=== PATIENT | male | born 1955 | race African-American/Black ===

== ENCOUNTER → 2023-03-24 12:37 | Outpatient (CLI) | payer MEDICARE, SELFPAY ==
--- NOTE | 2023-03-24 12:45 | XR_ITS ---
FINAL REPORT CLINICAL HISTORY: foot pain, hammer toe repair 2020, sharp pain in 2nd and 5th digits FINDINGS: LEFT FOOT SERIES Three views of the left foot were obtained. There is no acute fracture or dislocation. There are degenerative and postoperative changes of the first metatarsophalangeal joint. There is presumed postoperative change of the fifth metatarsal. There is mild degenerative change. A plantar calcaneal spur is seen. A pes planus deformity is noted. There is no soft tissue abnormality. IMPRESSION: No acute bony abnormality. Degenerative and postoperative changes as stated above. Reviewed, Interpreted and Dictated by Clarence Bradshaw III, MD Transcribed by Susana Mirza Authenticated and [facility]
== END ==
PROVIDERS: PCP Family Medicine Addiction Medicine; Visit Provider Podiatrist
DX: M79.672 Pain in left foot (principal)
CPT/HCPCS: 73630

== ENCOUNTER 2023-08-06 09:10 | Day surgery (SDC) | payer MEDICARE, SELFPAY ==
[2023-08-04 14:11] VITALS: BMI 29.2
[2023-08-06] VITALS (10 sets, daily range): BP systolic 117–154; BP diastolic 45–93; PULSE 74–127; RESP 17–24; TEMP 36.1–36.2; O2SAT 96–99
--- OUTSIDE RECORDS SUMMARY | 2023-08-06 09:17 | XMS_ITS ---
Author Name Unknown Address [address] [place] [address] Phone Organization [facility] Address [address] [place] [address] Phone Care Team Providers Care Utility Tractor Operator Name Role Phone Michael HERNANDEZ, Carey Silva Unavailable [phone] Vern HERNANDEZ, Vega Unavailable [phone] DENISE HERNANDEZ, OCTAVIO I Primary Care Provider [phone] Reason for Referral Date Encounter Description Provider Reason for Referral 02/11/23 Follow Up Vega Porras MD Referral To Physician 12/29/22 Follow Up Vega Porras MD Referral To Physician 07/21/22 Follow Up Vega Porras MD Referral To Physician 05/07/22 Post Op Vega Porras MD Referral To Physician 05/06/21 WC FOLLOW UP/EST Vega Porras MD Referral To Physician - see pcp for bp 04/15/21 WC POST OP Vega Porras MD Referral To Physician - see pcp for bp 03/18/21 Post Op Vega Porras MD Referral To Physician - see pcp for bp 11/12/20 Follow Up Vega Porras MD Referral To Physician - see pcp for bp 08/22/20 INJECTION Vega Porras MD Referral To Physician - see pcp for bp 08/13/20 Follow Up Vega Porras MD Referral To Physician - see pcp for bp 05/28/20 INJECTION Vega Porras MD Referral To Physician - see pcp for bp 05/28/20 Follow Up Vega Porras MD Referral To Physician - see pcp for bp Problems Includes: Active, inactive, and resolved Problems All Visits Onset Date Resolved Date Provider Condition S tatus Ankle Joint Pain 11/12/2020 Vega Porras MD Act eliazar Plan of Treatment Future Appointments Date Time Location Provi radha Follow Up 08/24/2023 10:00AM [facility] Porras MD Instructions to patient Instructions for patient see pcp for bp and weight Last Documented On 3 10:17AM ; [facility] Lose weight Last Documented On 3 10:17AM ; [facility] Instructions for patient see pcp for bp and weight Last Documented On 3 8:49AM ; [facility] Lose weight Last Documented On 3 8:49AM ; [facility] Instructions for patient see pcp for bp and weight Last Documented On 3 9:24AM ; [facility] No intervention and counseli ng on cessation of tobacco use Last Documented On 3 9:24AM ; [facility] Lose weight Last Documented On 3 9:24AM ; [facility] Instructions for patient see pcp for bp and weight Last Documented On 3 1:59PM ; [facility] No intervention and counseli ng on cessation of tobacco use Last Documented On 3 1:59PM ; [facility] Lose weight Last Documented On 3 1:59PM ; [facility] Instructions for patient see pcp for bp and weight Last Documented On 2 9:21AM ; [facility] No intervention and counseli ng on cessation of tobacco use Last Documented On 2 9:21AM ; [facility] Lose weight Last Documented On 2 9:21AM ; [facility] Instructions for patient see pcp for bp and weight Last Documented On 2 9:21AM ; [facility] No intervention and counseli ng on cessation of tobacco use Last Documented On 2 9:21AM ; [facility] Lose weight Last Documented On 2 9:21AM ; [facility] Instructions for patient see pcp for bp and weight Last Documented On 2 2:44PM ; [facility] No intervention and counseli ng on cessation of tobacco use Last Documented On 2 2:44PM ; [facility] Lose weight Last Documented On 2 2:44PM ; [facility] Instructions for patient see pcp for bp and weight Last Documented On 2 10:28AM ; [facility] No intervention and counseli ng on cessation of tobacco use Last Documented On 2 10:35AM ; [facility] Lose weight Last Documented On 2 10:28AM ; [facility] Instructions for patient see pcp for bp and weight Last Documented On 2 3:54PM ; [facility] Lose weight Last Documented On 2 3:54PM ; [facility] Instructions for patient see pcp for bp and weight Last Documented On 2 11:35AM ; [facility] Lose weight Last Documented On 2 11:35AM ; [facility] Instructions for patient see pcp for bp and weight Last Documented On 1 9:03AM ; [facility] Lose weight Last Documented On 1 9:03AM ; [facility] Instructions for patient see pcp for bp and weight Last Documented On 1 9:59AM ; [facility] Lose weight Last Documented On 1 9:59AM ; [facility] Instructions for patient see pcp for bp and weight Last Documented On 1 9:42AM ; [facility] Lose weight Last Documented On 1 9:42AM ; [facility] Instructions for patient see pcp for bp and weight Last Documented On 1 10:37AM ; [facility] Lose weight Last Documented On 1 10:37AM ; [facility] Instructions for patient see pcp for bp and weight Last Documented On 0 11:07AM ; [facility] Lose weight Last Documented On 0 11:07AM ; [facility] Instructions for patient see pcp for bp and weight Last Documented On 0 11:46AM ; [facility] Lose weight Last Documented On 0 11:46AM ; [facility] Instructions for patient see pcp for bp and weight Last Documented On 0 1:16PM ; [facility] Lose weight Last Documented On 0 1:16PM ; [facility] Instructions for patient see pcp for bp and weight Last Documented On 0 10:00AM ; [facility] Lose weight Last Documented On 0 10:00AM ; [facility] Instructions for patient see pcp for weight Last Documented On 0 10:46AM ; [facility] Lose weight Last Documented On 0 10:46AM ; [facility] Instructions for patient see pcp for weight Last Documented On 0 2:11PM ; [facility] Lose weight Last Documented On 0 2:11PM ; [facility] Assessments Includes: Assessments for all patient encounters No Assessments Recorded Instructions Includes: Instructions for all patient encounters Instructions to patient Instructions for patient see pcp for bp and weight Last Documented On 3 10:17AM ; [facility] Lose weight Last Documented On 3 10:17AM ; [facility] Instructions for patient see pcp for bp and weight Last Documented On 3 8:49AM ; [facility] Lose weight Last Documented On 3 8:49AM ; [facility] Instructions for patient see pcp for bp and weight Last Documented On 3 9:24AM ; [facility] No intervention and counseli ng on cessation of tobacco use Last Documented On 3 9:24AM ; [facility] Lose weight Last Documented On 3 9:24AM ; [facility] Instructions for patient see pcp for bp and weight Last Documented On 3 1:59PM ; [facility] No intervention and counseli ng on cessation of tobacco use Last Documented On 3 1:59PM ; [facility] Lose weight Last Documented On 3 1:59PM ; [facility] Instructions for patient see pcp for bp and weight Last Documented On 2 9:21AM ; [facility] No intervention and counseli ng on cessation of tobacco use Last Documented On 2 9:21AM ; [facility] Lose weight Last Documented On 2 9:21AM ; [facility] Instructions for patient see pcp for bp and weight Last Documented On 2 9:21AM ; [facility] No intervention and counseli ng on cessation of tobacco use Last Documented On 2 9:21AM ; [facility] Lose weight Last Documented On 2 9:21AM ; [facility] Instructions for patient see pcp for bp and weight Last Documented On 2 2:44PM ; [facility] No intervention and counseli ng on cessation of tobacco use Last Documented On 2 2:44PM ; [facility] Lose weight Last Documented On 2 2:44PM ; [facility] Instructions for patient see pcp for bp and weight Last Documented On 2 10:28AM ; [facility] No intervention and counseli ng on cessation of tobacco use Last Documented On 2 10:35AM ; [facility] Lose weight Last Documented On 2 10:28AM ; [facility] Instructions for patient see pcp for bp and weight Last Documented On 2 3:54PM ; [facility] Lose weight Last Documented On 2 3:54PM ; [facility] Instructions for patient see pcp for bp and weight Last Documented On 2 11:35AM ; [facility] Lose weight Last Documented On 2 11:35AM ; [facility] Instructions for patient see pcp for bp and weight Last Documented On 1 9:03AM ; [facility] Lose weight Last Documented On 1 9:03AM ; [facility] Instructions for patient see pcp for bp and weight Last Documented On 1 9:59AM ; [facility] Lose weight Last Documented On 1 9:59AM ; [facility] Instructions for patient see pcp for bp and weight Last Documented On 1 9:42AM ; [facility] Lose weight Last Documented On 1 9:42AM ; [facility] Instructions for patient see pcp for bp and weight Last Documented On 1 10:37AM ; [facility] Lose weight Last Documented On 1 10:37AM ; [facility] Instructions for patient see pcp for bp and weight Last Documented On 0 11:07AM ; [facility] Lose weight Last Documented On 0 11:07AM ; [facility] Instructions for patient see pcp for bp and weight Last Documented On 0 11:46AM ; [facility] Lose weight Last Documented On 0 11:46AM ; [facility] Instructions for patient see pcp for bp and weight Last Documented On 0 1:16PM ; [facility] Lose weight Last Documented On 0 1:16PM ; [facility] Instructions for patient see pcp for bp and weight Last Documented On 0 10:00AM ; [facility] Lose weight Last Documented On 0 10:00AM ; [facility] Instructions for patient see pcp for weight Last Documented On 0 10:46AM ; [facility] Lose weight Last Documented On 0 10:46AM ; [facility] Instructions for patient see pcp for weight Last Documented On 0 2:11PM ; [facility] Lose weight Last Documented On 0 2:11PM ; [facility] Medical Equipment - Implanted Devices Includes: Current and historical Devices No Medical Equipment Recorded Medications Includes: Current and historical Medications Current Medications (continue as prescribed) Synthroid 25 MCG Oral Tablet 06/09/2022 Provider: Diagnosis: Past Medications on file oxyCODONE HCl 5 MG Oral Tablet 02/16/2023 - 02/21/2023 Provider: Vega Porras MD Diagnosis: 1-2 p o q 6-8h for post op pain Meloxicam 15 MG Oral Tablet 02/16/2023 - 03/18/2023 Pr ovider: Vega Porras MD Diagnosis: once a day Ondansetron HCl 4 MG Oral Tablet 02/16/2023 - 03/02/20 Provider: Vega Porras MD Diagnosis: 1-2 p o q 6-8h as needed for nausea Cefadroxil 500 MG Oral Capsule 02/16/2023 - 02/19/2023 Provider: Vega Porras MD Diagnosis: twice a day traMADol HCl 50 MG Oral Tablet 02/16/2023 - 03/03/2023 Provider: Vega Porras MD Diagnosis: 1-2 p o q 6-8h for breakthrough post op pain Colace 100 MG Oral Capsule 02/16/2023 - 03/18/2023 Pro vider: Vega Porras MD Diagnosis: 1-2 tabs daily as needed, AFTER SURGERY Aspirin Adult Low Strength 8 1 MG Oral Tablet Delayed Release 02/16/2023 - 04/02/2023 Provider: Vega Porras MD Diagnosis: twice a day Acetaminophen 500 MG Oral Tablet 02/16/2023 - 03/18/20 Provider: Vega Porras MD Diagnosis: 2 three times a day , AFTER SURGERY Mupirocin 2% External Ointment 02/08/2023 - 02/13/2023 Provider: Vega Porras MD Diagnosis: as directed Apply to each no stril with a q tip once a day for 5 days prior to surgery Metaxalone 800 MG Oral Tablet 12/29/2022 - 01/14/2023 Provider: Vega Porras MD Diagnosis: three times a day traMADol HCl 50 MG Oral Tablet 12/29/2022 - 01/14/2023 Provider: Vega Porras MD Diagnosis: three times a day Ultram 50 MG Oral Tablet 06/09/2022 - 07/09/2022 Provi radha: Vega Porras MD Diagnosis: three times a day oxyCODONE HCl 5 MG Oral Tablet 04/16/2022 - 04/21/2022 Provider: Vega Porras MD Diagnosis: 1-2 p o q 6-8h for post op pain Mobic 15 MG Oral Tablet 04/16/2022 - 05/16/2022 Provid er: Vega Porras MD Diagnosis: once a day Ondansetron HCl 4 MG Oral Tablet 04/16/2022 - 04/30/20 Provider: Vega Porras MD Diagnosis: 1-2 p o q 6-8h as needed for nausea Cefadroxil 500 MG Oral Capsule 04/16/2022 - 04/19/2022 Provider: Vega Porras MD Diagnosis: twice a day Ultram 50 MG Oral Tablet 04/16/2022 - 05/01/2022 Provi radha: Vega Porras MD Diagnosis: 1-2 p o q 6-8h for breakthrough post op pain Colace 100 MG Oral Capsule 04/16/2022 - 05/16/2022 Pro vider: Vega Porras MD Diagnosis: 1-2 tabs daily as needed, AFTER SURGERY Aspirin Adult Low Strength 8 1 MG Oral Tablet Delayed Release 04/16/2022 - 05/31/2022 Provider: Vega Porras MD Diagnosis: twice a day Acetaminophen 500 MG Oral Tablet 04/16/2022 - 05/16/20 Provider: Vega Porras MD Diagnosis: 2 three times a day , AFTER SURGERY Vitamin D3 50 MCG (1999 [place]) Oral Tablet 04/14/2022 - 05/14/2022 Provider: Santa KEYES Diagnosis: once a day traMADol HCl 50 MG Oral Tablet 03/31/2022 - 04/30/2022 Provider: Vega Porras MD Diagnosis: twice a day traMADol HCl 50 MG Oral Tablet 01/16/2022 - 02/15/2022 Provider: Vega Porras MD Diagnosis: twice a day traMADol HCl 50 MG Oral Tablet 01/16/2022 - 04/07/2022 Provider: Vega Porras MD Diagnosis: Ultram 50 MG Oral Tablet 09/23/2021 - 10/08/2021 Provi radha: Vega Porras MD Diagnosis: 1 tab every 6 hrs prn pain Liothyronine Sodium 25 MCG O ral Tablet 09/03/2021 - 06/09/2022 Provider: CURTIS HRUTADO MD Diagnosis: Metoprolol Succinate ER 25 M G Oral Tablet Extended Release 24 Hour 07/09/2021 - 04/07/2022 Provider: Diagnosis: Levothyroxine Sodium 150 MCG Oral Tablet 07/09/2021 - 06/09/2022 Provider: CURTIS HURTADO MD Diagnosis: oxyCODONE HCl 5 MG Oral Tablet 03/03/2021 - 04/02/2021 Provider: Vega Porras MD Diagnosis: 1-2 po q 4-6h take 1-2 table ts every 4-6hrs for post op pain Aspirin Adult Low Strength 8 1 MG Oral Tablet Delayed Release 03/03/2021 - 03/25/2021 Provider: Vega Porras MD Diagnosis: 1 tab every 12 hours Acetaminophen 500 MG Oral Tablet 03/03/2021 - 04/02/20 Provider: Vega Porras MD Diagnosis: 2 po three times a day Acetaminophen 500 MG Oral Tablet 03/03/2021 - 04/02/20 Provider: Vega Porras MD Diagnosis: 2 three times a day take 2 t ablets 3 times daily, AFTER SURGERY Colace 100 MG Oral Capsule 03/03/2021 - 04/02/2021 Pro vider: Vega Porras MD Diagnosis: 1-2 tabs daily 1-2 tablets daily, as needed, AFT ER SURGERY Cephalexin 500 MG Oral Capsule 03/03/2021 - 03/06/2021 Provider: Vega Porras MD Diagnosis: four times a day Zofran 4 MG Oral Tablet 03/03/2021 - 03/18/2021 Provid er: Vega Porras MD Diagnosis: 1 po q 6 to 8 hrs prn pain t nicole 1 tablet every 6-8hrs for nausea, AFTER SURGERY Mobic 15 MG Oral Tablet 03/03/2021 - 04/02/2021 Provid er: Vega Porras MD Diagnosis: once a day 1 tablet daily Ultram 50 MG Oral Tablet 03/03/2021 - 04/02/2021 Provi radha: Vega Porras MD Diagnosis: 1-2 p o q 6-8h take 1-2 tabl ets every 6-8 hours for breakthrough post op pain Mupirocin 2% External Ointment 11/15/2020 - 04/07/2022 Provider: Vega Porras MD Diagnosis: twice a day - apply under ea ch nostril 2 x day 5days prior to surgery with a q-tip Synthroid 200 MCG Oral Tablet 05/07/2020 - 04/07/2022 Provider: Diagnosis: Medications Administered Includes: Administered Medications in patient's chart No Administered Medications Recorded Vital Signs Includes: Vital Signs from 08/06/2022 through 08/06/2023 Vital Name 04/06/2023 10:38A 03/02/2023 08:49A 02/11/2023 09:40A 12/29/2022 02:15P Height (in) 79 79 79 79 Weight (lb) 255 255 255 260 Body Mass Index 28.7 28.7 28.7 29.3 Body Surface Area 2.5 2.5 2.5 2.5 Note: mg mg ba ba Last Documented On: 04/06/2023 10:38AM ; [facility] 03/02/2023 8:50AM ; [facility] 02/11/2023 9:41AM ; [facility] 12/29/2022 2:15PM ; [facility] Results Includes: Results from 08/06/2022 through 08/06/2023 No Results Recorded For Specified Dates History of Present Illness History of Present Illness not supported for this document type No History of Present Illness Recorded Social History Description Last Updated No recent change in diet 06/09/2022 Procedures and Surgical History Includes: Procedures from 08/06/2022 through 08/06/2023 Procedures Code Diagnosis Performing Provider Service Location Service Date PELVIS w/ 2-3 VIEW HIP (LEFT) [address] [facility] compl of internal left hip prosthesis, init encntr Huber Arenas PA-C [facility] 03/02/2023 Surgical History Last Updated History of hernia repair 08/18/2019 Medical History Includes: Medical History in patient's chart Description Last Updated History of Thyroid Disease 06/09/2022 Family History Includes: Family History in patient's chart Description Last Updated No significant family history 08/18/2019 Review of Systems Review of Systems not supported for this document type No Review of Systems Recorded Mental Status Description No anxiety Functional Status No Functional Status Recorded Physical Exam Physical Exam not supported for this document type No Physical Exam Recorded Allergies Includes: Active, inactive, and resolved Allergies No Known Allergies Encounters Includes: Encounters from 08/06/2022 through 08/06/2023 Encounter Provider Location Date Check-In Time Check-Out Time Diagnosis Post Op Vega Porras MD [facility] 04/06/20 10:14AM 11:01AM Post Op Huber Arenas PA-C [facility] 03/02/20 8:52AM 9:20AM [Patient Encounter] Vega Porras MD 02/18/20 23 12/29/2022 9:32AM 12/29/2022 11:59PM [facility] Vega Porras MD Surgery 02/18/20 23 02/16/2023 10:16AM 02/11/2023 11:59PM Follow Up [facility]/12/20 9:13AM 10:08AM Follow Up Vega Porras MD [facility] 12/30/19 1:54PM 2:32PM Insurance Includes: Active Insurance Policies Plan Name Member ID Group # Subscriber Relationship Effect eliazar Dates 1 - [employer] [id number] Rick Velasco Self 08/23/2022 - U nknown Clinical Notes Includes: Signed Clinical Notes starting from 08/06/2022 * Progress note Date Encounter Last Documented by 04/06/2023 Post Op Last documented on 04/07/2023; 3:16 PM, Vega Porras MD; [facility] Active Problems & Conditions - Ankle Joint Pain - Joint Pain in the Right Hip - Lower Back Pain Chief Complaint The Chief Complaint is: LT YORDY Revision POV. Referred Here Referred by PCP. History of Present Illness Rick Velasco is a 67 year old male. - Allergy list reviewed - Problem list reviewed - Medication list reviewed left hip revision doing well Current Medication - Synthroid 25 MCG Oral Tablet 0 days, 0 refills Past Medical/Surgical History Reported: Medical: Thyroid disease and gallbladder disease. Immunization History: Recent immunization for flu 05/23/2020. No recent immunization for pneumococcal pneumonia. Diagnoses: Thyroid Disease. Thyroid Disease Procedural: - History of Gallbladder Surgical: - Hernia repair - Hernia repair - Back surgery Social History Not a current smoker. Not a current smoker. Current diet: No recent change in diet. No recent change in diet. Caffeine use: Caffeine use. Tobacco use: No tobacco use. Current smoker and tobacco non-user. Not a smoker. Non-smoker. Smoking status: Never smoker. Alcohol: Alcohol use. Drug Use: Not using drugs. Habits: Not exercising regularly. Allergies - No Known Allergies Family History No significant family history Review Of Systems Systemic: Not feeling tired, no recent weight loss, and no recent weight gain. No edema. Head: No headache and no sinus pain. Eyes: No vision problems and no glaucomatous visual field defect. No Cataracts, no Glasses/Contacts, and no Glaucoma. Otolaryngeal: No hearing loss and no tinnitus. No nasal symptoms. Cardiovascular: No chest pain or discomfort, no palpitations, no Hypertension, and no High Cholesterol. Pulmonary: No daytime asthma symptoms, no cough, and no chronic cough. No wheezing. Gastrointestinal: No heartburn and no abdominal pain. No Indigestion, no Acid Reflux, no Peptic Ulcer, no GI Stomach Bleed, and no Ulcers. Endocrine: No hot flashes, no muscle weakness, no Diabetes, and no Hypothyroid. Hyperthyroid. Hematologic: No easy bleeding, no tendency for easy bruising, and no Anemia. Musculoskeletal: No Arthritis. Lower back pain. No soft tissue swelling and no localized joint pain. Neurological: No dizziness, no convulsions, and no numbness. Psychological: No anxiety, no emotional lability, no depression, and no insomnia. Not crying for no reason. Skin: No dry skin. No Ulcers, no Scars, no rash, and no ulcers. Allergic and Immunologic: No complaint of seasonal allergic reaction. Physical Findings - Vitals taken 04/06/2023 10:38 am mg Height 79 in 60 - 80 Weight 255 lbs 123 - 215 Body Mass Index 28.7 kg/m2 Body Surface Area 2.5 m2 Standard Measurements: - Patient was overweight. left hip incision is clean and dry and healing well leg lengths are equal as a normal gait today Tests 2 views left hip show the implant in good position March 02, 2023 x-rays of the pelvis and left hipequal offset and length in both lower extremities with good position of implants Assessment revision left total hip February 17, 2023 Previous Tests Imaging: X-Ray: An X-ray was performed. Counseling/Education - Instructions for patient see pcp for bp and weight - Lose weight Plan Fall Risk Assessment: This patient has been identified as a fall risk. Balance/gait along with postural blood pressure, vision and home fall hazards have been assessed. Medications have been reviewed, and recommendations made with regard to contributing factors for future falls. Plan of care: Consideration of vitamin D supplementation along with balance and strength training with consideration for formal physical therapy has been discussed with the patient. patient will follow up in 3 months for repeat x-rays of the pelvis and sooner if needed otherwise continue exercise program Notes This dictation was done with voice recognition software and may contain errors and omissions. Practice Management Use of tobacco assessment performed and patient screened for future fall risk documentation of any fall with injury in past year. Care Team - Carey Rodriguez MD - [employer] * Progress note Date Encounter Last Documented by 03/02/2023 Post Op Last documented on 03/02/2023; 12:30 PM, Huber Arenas PA-C; [facility] Active Problems & Conditions - Ankle Joint Pain - Joint Pain in the Right Hip - Lower Back Pain Chief Complaint The Chief Complaint is: LT YORDY Revision POV. Referred Here Referred by PCP. History of Present Illness Rick Velasco is a 67 year old male. - Allergy list reviewed - Problem list reviewed - Medication list reviewed Follow-up on his left total hip revision February 17, 2023. Patient states he is doing really good at this point time no significant pain he does feel that the legs are equal at this point in time. He is in a walking up to a mile a day he says doing exercises on his own at this point in time Current Medication - Acetaminophen 500 MG Oral Tablet 2 three times a day , AFTER SURGERY, 10 days, 2 refills - Aspirin Adult Low Strength 81 MG Oral Tablet Delayed Release twice a day, 45 days, 0 refills - Colace 100 MG Oral Capsule 1-2 tabs daily as needed, AFTER SURGERY, 30 days, 0 refills - Meloxicam 15 MG Oral Tablet once a day, 30 days, 0 refills - Synthroid 25 MCG Oral Tablet 0 days, 0 refills - traMADol HCl 50 MG Oral Tablet 1-2 p o q 6-8h for breakthrough post op pain, 15 days, 0 refills Past Medical/Surgical History Reported: Medical: Thyroid disease and gallbladder disease. Immunization History: Recent immunization for flu 05/23/2020. No recent immunization for pneumococcal pneumonia. Diagnoses: Thyroid Disease Procedural: - History of Gallbladder Surgical: - Hernia repair - Back surgery Social History Not a current smoker. Not a current smoker. Current diet: No recent change in diet. No recent change in diet. Caffeine use: Caffeine use. Tobacco use: No tobacco use. Current smoker and tobacco non-user. Not a smoker. Non-smoker. Smoking status: Never smoker. Alcohol: Alcohol use. Drug Use: Not using drugs. Habits: Not exercising regularly. Allergies - No Known Allergies Family History No significant family history Review Of Systems Systemic: Not feeling tired, no recent weight loss, and no recent weight gain. No edema. Head: No headache and no sinus pain. Eyes: No vision problems and no glaucomatous visual field defect. No Cataracts, no Glasses/Contacts, and no Glaucoma. Otolaryngeal: No hearing loss and no tinnitus. No nasal symptoms. Cardiovascular: No chest pain or discomfort, no palpitations, no Hypertension, and no High Cholesterol. Pulmonary: No daytime asthma symptoms, no cough, and no chronic cough. No wheezing. Gastrointestinal: No heartburn and no abdominal pain. No Indigestion, no Acid Reflux, no Peptic Ulcer, no GI Stomach Bleed, and no Ulcers. Endocrine: No hot flashes, no muscle weakness, no Diabetes, and no Hypothyroid. Hyperthyroid. Hematologic: No easy bleeding, no tendency for easy bruising, and no Anemia. Musculoskeletal: No Arthritis. Lower back pain. No soft tissue swelling and no localized joint pain. Neurological: No dizziness, no convulsions, and no numbness. Psychological: No anxiety, no emotional lability, no depression, and no insomnia. Not crying for no reason. Skin: No dry skin. No Ulcers, no Scars, no rash, and no ulcers. Allergic and Immunologic: No complaint of seasonal allergic reaction. Physical Findings - Vitals taken 03/02/2023 08:49 am mg Height 79 in Weight 255 lbs Body Mass Index 28.7 kg/m2 Body Surface Area 2.5 m2 Standard Measurements: - Patient was overweight. His incision looks clean dry intact with the dressing off today he has some scabbing near the base of the incision no drainage or erythema negative Homans Sitting today's leg lengths appear equal Tests 2 views left hip show the implant in good position March 02, 2023 Assessment revision left total hip February 17, 2023 Previous Tests Imaging: X-Ray: An X-ray was performed. Counseling/Education - Instructions for patient see pcp for bp and weight - Lose weight Plan Fall Risk Assessment: This patient has been identified as a fall risk. Balance/gait along with postural blood pressure, vision and home fall hazards have been assessed. Medications have been reviewed, and recommendations made with regard to contributing factors for future falls. Plan of care: Consideration of vitamin D supplementation along with balance and strength training with consideration for formal physical therapy has been discussed with the patient. Patient was seen by myself Huber Arenas PA-C. Patient will follow up [address] Porras he is planning on potentially flying to see a family member who is not doing well recommend he continue on his aspirin which he still taking Notes This dictation was done with voice recognition software and may contain errors and omissions. Practice Management Use of tobacco assessment performed and patient screened for future fall risk documentation of any fall with injury in past year. Care Team - Carey Rodriguez MD - [employer] * Progress note Date Encounter Last Documented by 02/11/2023 Follow Up Last documented on 02/15/2023; 5:22 PM, Vega Porras MD; [facility] Active Problems & Conditions - Ankle Joint Pain - Joint Pain in the Right Hip - Lower Back Pain Chief Complaint The Chief Complaint is: Left Hip PainThe Chief Complaint is: Left hip pain. Referred Here Referred by PCP. History of Present Illness Rick Velasco is a 67 year old male. - Allergy list reviewed - Problem list reviewed - Medication list reviewed Patient presents for discussion of his upcoming surgery and plan for equalizing leg lengths and offset on the left side where he ended up little bit short and has had failure improvement with conservative treatment with shoe lift Current Medication - Mupirocin 2% External Ointment as directed Apply to each nostril with a q tip once a day for 5 days prior to surgery, 5 days, 0 refills - Synthroid 25 MCG Oral Tablet 0 days, 0 refills Past Medical/Surgical History Reported: Medical: Thyroid disease and gallbladder disease. Immunization History: Recent immunization for flu 05/23/2020. No recent immunization for pneumococcal pneumonia. Diagnoses: Thyroid Disease. Thyroid Disease Procedural: - History of Gallbladder Surgical: - Hernia repair - Hernia repair - Back surgery Social History Not a current smoker. Not a current smoker. Current diet: No recent change in diet. No recent change in diet. Caffeine use: Caffeine use. Tobacco use: No tobacco use. Current smoker and tobacco non-user. Not a smoker. Non-smoker. Smoking status: Never smoker. Alcohol: Alcohol use. Drug Use: Not using drugs. Habits: Not exercising regularly. Allergies - No Known Allergies Family History No significant family history Review Of Systems Systemic: Not feeling tired, no recent weight loss, and no recent weight gain. No edema. Head: No headache and no sinus pain. Eyes: No vision problems and no glaucomatous visual field defect. No Cataracts, no Glasses/Contacts, and no Glaucoma. Otolaryngeal: No hearing loss and no tinnitus. No nasal symptoms. Cardiovascular: No chest pain or discomfort, no palpitations, no Hypertension, and no High Cholesterol. Pulmonary: No daytime asthma symptoms, no cough, and no chronic cough. No wheezing. Gastrointestinal: No heartburn and no abdominal pain. No Indigestion, no Acid Reflux, no Peptic Ulcer, no GI Stomach Bleed, and no Ulcers. Endocrine: No hot flashes, no muscle weakness, no Diabetes, and no Hypothyroid. Hyperthyroid. Hematologic: No easy bleeding, no tendency for easy bruising, and no Anemia. Musculoskeletal: No Arthritis. Lower back pain. No soft tissue swelling and no localized joint pain. Neurological: No dizziness, no convulsions, and no numbness. Psychological: No anxiety, no emotional lability, no depression, and no insomnia. Not crying for no reason. Skin: No dry skin. No Ulcers, no Scars, no rash, and no ulcers. Allergic and Immunologic: No complaint of seasonal allergic reaction. Physical Findings - Vitals taken 02/11/2023 09:40 am ba Height 79 in 60 - 80 Weight 255 lbs 123 - 215 Body Mass Index 28.7 kg/m2 Body Surface Area 2.5 m2 Standard Measurements: - Patient was overweight. Left lower extremity appears to be about 4 to 6 mm millimeter short clinically but has good motion and good healing neurovascular exam intact otherwise Assessment Left total hip replacement April 17, 2022 Previous Tests Imaging: X-Ray: An X-ray was performed. Therapy - No intervention and counseling on cessation of tobacco use. - Follow-up visit in one month. - Clinical summary provided to patient. - Referral to physician. Counseling/Education - Instructions for patient see pcp for bp and weight - Lose weight Plan Fall Risk Assessment: This patient has been identified as a fall risk. Balance/gait along with postural blood pressure, vision and home fall hazards have been assessed. Medications have been reviewed, and recommendations made with regard to contributing factors for future falls. Plan of care: Consideration of vitamin D supplementation along with balance and strength training with consideration for formal physical therapy has been discussed with the patient. We discussed the operation in detail again risk benefits were discussed Willough be able to equalize his leg length and offset with the liner and ball exchange he understands the details of the operation would like to proceed accordingly Notes This dictation was done with voice recognition software and may contain errors and omissions. Practice Management Use of tobacco assessment performed and patient screened for future fall risk documentation of any fall with injury in past year. Care Team - Carey Rodriguez MD - [employer] * Progress note Date Encounter Last Documented by 12/29/2022 Follow Up Last documented on 01/11/2023; 8:50 AM, Vega Porras MD; [facility] Active Problems & Conditions - Ankle Joint Pain - Joint Pain in the Right Hip - Lower Back Pain Chief Complaint The Chief Complaint is: Left YORDY POVThe Chief Complaint is: Left hip pain. Referred Here Referred by PCP. History of Present Illness Rick Velasco is a 67 year old male. - Allergy list reviewed - Problem list reviewed - Medication list reviewed 67-year-old male returns in follow-up of a left total hip replacement 04/17/2022. He states that he still has some of a leg length discrepancy on the left compared to the right. He has tried shoe inserts which did not improve his gait and his hip pain did not improve either. He has been taking Advil for referred back pain which is not providing significant relief. Current Medication - Synthroid 25 MCG Oral Tablet 0 days, 0 refills Past Medical/Surgical History Reported: Medical: Thyroid disease and gallbladder disease. Immunization History: Recent immunization for flu 05/23/2020. No recent immunization for pneumococcal pneumonia. Diagnoses: Thyroid Disease. Thyroid Disease Procedural: - History of Gallbladder Surgical: - Hernia repair - Hernia repair - Back surgery Social History Not a current smoker. Not a current smoker. Current diet: No recent change in diet. No recent change in diet. Caffeine use: Caffeine use. Tobacco use: No tobacco use. Current smoker and tobacco non-user. Not a smoker. Non-smoker. Smoking status: Never smoker. Alcohol: Alcohol use. Drug Use: Not using drugs. Habits: Not exercising regularly. Allergies - No Known Allergies Family History No significant family history Review Of Systems Systemic: Not feeling tired, no recent weight loss, and no recent weight gain. No edema. Head: No headache and no sinus pain. Eyes: No vision problems and no glaucomatous visual field defect. No Cataracts, no Glasses/Contacts, and no Glaucoma. Otolaryngeal: No hearing loss and no tinnitus. No nasal symptoms. Cardiovascular: No chest pain or discomfort, no palpitations, no Hypertension, and no High Cholesterol. Pulmonary: No daytime asthma symptoms, no cough, and no chronic cough. No wheezing. Gastrointestinal: No heartburn and no abdominal pain. No Indigestion, no Acid Reflux, no Peptic Ulcer, no GI Stomach Bleed, and no Ulcers. Endocrine: No hot flashes, no muscle weakness, no Diabetes, and no Hypothyroid. Hyperthyroid. Hematologic: No easy bleeding, no tendency for easy bruising, and no Anemia. Musculoskeletal: No Arthritis. Lower back pain. No soft tissue swelling and no localized joint pain. Neurological: No dizziness, no convulsions, and no numbness. Psychological: No anxiety, no emotional lability, no depression, and no insomnia. Not crying for no reason. Skin: No dry skin. No Ulcers, no Scars, no rash, and no ulcers. Allergic and Immunologic: No complaint of seasonal allergic reaction. Physical Findings - Vitals taken 12/29/2022 02:15 pm ba Height 79 in 60 - 80 Weight 260 lbs 123 - 215 Body Mass Index 29.3 kg/m2 Body Surface Area 2.5 m2 Standard Measurements: - Patient was overweight. Patient is not walking with any assistive device today. Pain with any left hip range of motion he does have about a 3 mm leg length discrepancy left greater than right On x-ray Left hip is about 4 to 5 mm shorter than the left than the right and patient does have slight antalgia when he walks and states that causes some pain about the lateral aspect of the left hip and the abductor tendon but motion is good there is no instability or with normal neurovascular exam and well-healed incision Tests X-ray of the pelvis and left hip show components to be well fixed with shortening on the left versus the right by 4 mm radiographically Assessment Left total hip replacement April 17, 2022 Previous Tests Imaging: X-Ray: An X-ray was performed. Therapy - No intervention and counseling on cessation of tobacco use. - Follow-up visit in one month. - Clinical summary provided to patient. - Referral to physician. Counseling/Education - Instructions for patient see pcp for bp and weight - Lose weight Plan StartCited - Other traMADol HCl 50 MG tablet three times a day, 16 days, 0 refills Metaxalone 800 MG tablet three times a day, 16 days, 0 refills EndCited Fall Risk Assessment: This patient has been identified as a fall risk. Balance/gait along with postural blood pressure, vision and home fall hazards have been assessed. Medications have been reviewed, and recommendations made with regard to contributing factors for future falls. Plan of care: Consideration of vitamin D supplementation along with balance and strength training with consideration for formal physical therapy has been discussed with the patient. Given that conservative measures were unsuccessful in regard to the patient's left hip pain and leg length discrepancy, we discussed the risk and benefits of surgery. The patient opted to proceed with a revision left total hip arthroplasty, all questions and concerns were addressed. In the meantime we will provide him with a prescription for tramadol and Skelaxin. The risk of the surgery was discussed and include but are not inclusive of the following: Anesthesia complications, infection, stiffness, DVT-PE, reaction to or failure of implants requiring reoperation, nerve or vascular injury, blood loss with possibility of transfusion, scar sensitivity, and the knowledge that rehabilitation will be essential for the success of the surgery. After the appropriate medical and dental clearance and insurance approval we'll get the surgery scheduled. Notes Transcribed by Matt Fairchild, acting as a scribe for Dr. Porras. This dictation was done with voice recognition software and may contain errors and omissions. Practice Management Use of tobacco assessment performed and patient screened for future fall risk documentation of any fall with injury in past year. Care Team - Carey Rodriguez MD - [employer]
--- OUTSIDE RECORDS SUMMARY | 2023-08-06 09:17 | XMS_ITS | Clinical Summary ---
Author Name Unknown Address [address] [place] [address] Phone Organization [facility] Address [address] [place] [address] Phone Care Team Providers Care Health Concierge Name Role Phone Michael HERNANDEZ, Carey Silva Unavailable [phone] Vern HERNANDEZ, Vega Unavailable [phone] DENISE HERNANDEZ, OCTAVIO Chaudhry Primary Care Provider [phone] Reason for Visit and Chief Complaint [Patient Encounter] Problems Includes: Problems addressed during this encounter and other active Problems All Visits Onset Date Resolved Date Provider Condition S tatus Ankle Joint Pain 11/12/2020 Vega Porras MD Act eliazar Plan of Treatment Pending Tests Order Diagnosis Results Due Ordering P rovider Therapy - Physical Therapy Hip 01/05/23 Vega Porras MD Future Appointments Date Time Location Provi radha Follow Up 08/24/2023 10:00AM [facility] Assessments Includes: Assessments from this encounter No Assessments Recorded Medical Equipment - Implanted Devices Includes: Current Devices No Medical Equipment Recorded Medications Includes: Medications discussed during this encounter and other current Medications Current Medications (continue as prescribed) Synthroid 25 MCG Oral Tablet 06/09/2022 Provider: Diagnosis: Medications Administered Includes: Administered Medications from this encounter No Administered Medications Recorded Results Includes: Results discussed during this encounter No Results Recorded For Specified Dates History of Present Illness Includes: History of Present Illness from this encounter No History of Present Illness Recorded Social History No Social History Recorded - Smoking Status Unknown Medical History Includes: Medical History addressed during this encounter No Medical History Recorded Family History Includes: Family History addressed during this encounter No Family History Recorded Review of Systems Includes: Review of Systems from this encounter No Review of Systems Recorded Mental Status Includes: Mental Status from this encounter No Mental Status Recorded Functional Status Includes: Functional Status from this encounter No Functional Status Recorded Physical Exam Includes: Physical Exam from this encounter No Physical Exam Recorded Allergies Includes: Active Allergies No Known Allergies Encounters Encounter Provider Location Date Check-In Time Check-Out Time Diagnosis [Patient Encounter] Vega Porras MD 02/17/2023 9:32AM 11:59PM Insurance Includes: Active Insurance Policies Plan Name Member ID Group # Subscriber Relationship Effect eliazar Dates 1 - [employer] [id number] Rick Velasco Self 08/23/2022 - U nknown Clinical Notes Includes: Clinical Notes from this encounter No Clinical Notes Recorded
--- OUTSIDE RECORDS SUMMARY | 2023-08-06 09:17 | XMS_ITS | Clinical Summary ---
Author Name Unknown Address [address] [place] [address] Phone Organization [facility] Address [address] [place] [address] Phone Care Team Providers Care Machine Bobbin Winder Name Role Phone Michael HERNANDEZ, Carey Silva Unavailable [phone] Vern HERNANDEZ, Vega Unavailable [phone] DENISE HERNANDEZ, OCTAVIO Chaudhry Primary Care Provider [phone] Reason for Visit and Chief Complaint The Chief Complaint is: LT YORDY Revision POV Problems Includes: Problems addressed during this encounter and other active Problems Current Visit Onset Date Resolved Date Provider Conditio n Status Lower Back Pain 08/18/2019 Nathan Conrad MD Act eliazar Past Visits Onset Date Resolved Date Provider Condition Status Ankle Joint Pain 11/12/2020 Vega Porras MD Act eliazar Plan of Treatment Fall Risk Assessment: This patient has been [...] therapy has been discussed with the patient. - Last Documented On 03/02/2023 12:30PM ; [facility] Patient was seen by myself Huber Arenas PA-C. Patient will follow up [address] Porras he is planning on potentially flying to see a family member who is not doing well recommend he continue on his aspirin which he still taking - Last Documented On 03/02/2023 12:30PM ; [facility] Future Appointments Date Time Location Provi radha Follow Up 08/24/2023 10:00AM [facility] Porras MD Instructions to patient Instructions for patient see pcp for bp and weight Last Documented On 3 8:49AM ; [facility] Lose weight Last Documented On 3 8:49AM ; [facility] Assessments Includes: Assessments from this encounter Findings revision left total hip February 17, 2023 - Last Documented On 03/02/2023 12:30PM ; [facility] Instructions Includes: Instructions from this encounter Instructions to patient Instructions for patient see pcp for bp and weight Last Documented On 3 8:49AM ; [facility] Lose weight Last Documented On 3 8:49AM ; [facility] Medical Equipment - Implanted Devices Includes: Current [...] Acetaminophen 500 MG Oral Tablet 04/16/2022 - 09/24/20 22 Provider: Vega Porras MD Diagnosis: 2 three [...] a day Ultram 50 MG Oral Tablet 09/23/2021 - 10/08/2021 Provi radha: Vega Porras MD Diagnosis: 1 tab every 6 hrs prn pain oxyCODONE HCl 5 MG Oral Tablet 03/03/2021 - 04/02/2021 Provider: Vega Porras MD Diagnosis: 1-2 po q 4-6h take 1-2 table ts every 4-6hrs for post op pain Aspirin Adult Low Strength 8 1 MG Oral Tablet Delayed Release 03/03/2021 - 03/25/2021 Provider: Vega Porras MD Diagnosis: 1 tab every 12 hours Acetaminophen 500 MG Oral Tablet 03/03/2021 - 04/02/20 21 Provider: Vega Porras MD Diagnosis: 2 po three times a day Acetaminophen 500 MG Oral Tablet 03/03/2021 - 04/02/20 21 Provider: Vega Porras MD Diagnosis: 2 three [...] 6-8 hours for breakthrough post op pain Medications Administered Includes: Administered Medications from this encounter No Administered Medications Recorded Vital Signs Includes: Vital Signs from this encounter Vital Name 03/02/2023 08:49A Height (in) 79 Weight (lb) 255 Body Mass Index 28.7 Body Surface Area 2.5 Note: mg Last Documented On: 03/02/2023 8:50AM ; [facility] Results Includes: Results discussed during this encounter No Results Recorded For Specified Dates History of Present Illness Includes: History of Present Illness from this encounter CHIP Velasco is a 67 year old male. [...] his own at this point in time Social History Description Last Updated No recent change in diet 06/09/2022 Procedures and Surgical History Includes: Procedures from this encounter Procedures Code Diagnosis Performing Provider Service Location Service Date PELVIS w/ 2-3 VIEW HIP (LEFT) [id number] [facility] compl of internal left hip prosthesis, init encntr Huber Arenas PA-C [facility] 03/02/2023 Surgical History Last Updated History of hernia repair 08/18/2019 Medical History Includes: Medical History addressed during this encounter Description Last Updated A recent immunization for flu 05/23/2020 08/13/2020 Family History Includes: Family History addressed during this encounter Description Last Updated No significant family history 08/18/2019 Review of Systems Includes: Review of Systems from this encounter Systemic: Not feeling tired, no recent weight [...] Immunologic: No complaint of seasonal allergic reaction. Mental Status Includes: Mental Status from this encounter Description No anxiety Functional Status Includes: Functional Status from this encounter No Functional Status Recorded Physical Exam Includes: Physical Exam from this encounter Allergies Includes: Active Allergies No Known Allergies Encounters Encounter Provider Location Date Check-In Time Check- Out Time Diagnosis Post Op Huber Arenas PA-C [facility] 3 8:52AM 9:20AM Insurance Includes: Active Insurance Policies Plan Name Member ID Group # Subscriber Relationship Effect eliazar Dates 1 - [employer] [id number] Rick Velasco Self 08/23/2022 - J Carlos nknown Clinical Notes Includes: Clinical Notes from this encounter * Progress note Date Encounter Last Documented by 03/02/2023 Post Op Last documented on 03/02/2023; 12:30 PM, Huber Arenas PA-C; [facility] Active Problems & Conditions - Ankle Joint [...] Care Team - Carey Rodriguez MD - [employer]
--- OUTSIDE RECORDS SUMMARY | 2023-08-06 09:17 | XMS_ITS | Clinical Summary ---
Author Name Unknown Address [address] [place] [address] Phone Organization [facility] , [facility] Address [address] [place] [address] Phone Care Team Providers Care Bilingual Research Interviewer Name Role Phone Michael HERNANDEZ, Carey Silva Unavailable [phone] Vern HERNANDEZ, Vega Unavailable [phone] DENISE HERNANDEZ, OCTAVIO Chaudhry Primary Care Provider [...] with the patient. - Last Documented On 04/07/2023 3:16PM ; [facility] patient will follow up in 3 months for repeat x-rays of the pelvis and sooner if needed otherwise continue exercise program - Last Documented On 04/07/2023 3:16PM ; [facility], [facility] Future Appointments Date Time Location Provi radha Follow Up 08/24/2023 10:00AM [facility] Instructions to patient Instructions for patient see pcp for bp and weight Last Documented On 3 10:17AM ; [facility], [facility] Lose weight Last Documented On 3 10:17AM ; [facility], [facility] Assessments Includes: Assessments from this encounter Findings revision left total hip February 17, 2023 - Last Documented On 04/07/2023 3:16PM ; [facility], [facility] Instructions Includes: Instructions from this encounter Instructions to patient Instructions for patient see pcp for bp and weight Last Documented On 3 10:17AM ; [facility], [facility] Lose weight Last Documented On 3 10:17AM ; [facility], [facility] Medical Equipment - Implanted Devices Includes: [...] Oral Tablet 03/03/2021 - 04/02/2021 Provid er: Vgea Porras MD Diagnosis: once a day 1 tablet daily Ultram 50 MG Oral Tablet 03/03/2021 - 04/02/2021 Provi radha: Vega Porras MD Diagnosis: 1-2 p o q 6-8h take 1-2 tabl ets every 6-8 hours for breakthrough post op pain Medications Administered Includes: Administered Medications from this encounter No Administered Medications Recorded Vital Signs Includes: Vital Signs from this encounter Vital Name 04/06/2023 10:38A Height (in) 79 Weight (lb) 255 Body Mass Index 28.7 Body Surface Area 2.5 Note: mg Last Documented On: 04/06/2023 10:38AM ; [facility], [facility] Results Includes: Results discussed during this encounter No Results Recorded For Specified Dates History of Present Illness Includes: History of Present Illness from this encounter CHIP Velasco is a 67 year old male. - Allergy list reviewed - Problem list reviewed - Medication list reviewed left hip revision doing well Social History Description Last Updated No recent change in diet 06/09/2022 Procedures and Surgical History Includes: Procedures from this encounter Procedures Code Diagnosis Performing Provider Service L ocation Service Date use of tobacco assessment performed 1000F Surgical History Last Updated History of hernia repair 08/18/2019 Medical History Includes: Medical History addressed during this encounter Description Last Updated History of Thyroid Disease 06/09/2022 Family History Includes: Family History addressed during [...] Time Check- Out Time Diagnosis Post Op Vega Porras MD [facility] 10:14AM 11:01AM Insurance Includes: Active Insurance Policies Plan Name Member ID Group # Subscriber Relationship Effect eliazar Dates 1 - [employer] GOLD CHO[employer] PLAN [id number] Rick Velasco Self 08/23/2022 - U nknown Clinical Notes Includes: Clinical Notes from this encounter * Progress note Date Encounter Last Documented by 04/06/2023 Post Op Last documented on 04/07/2023; 3:16 PM, Vega Porras MD; [facility], [facility] Active Problems & Conditions - Ankle [...] Care Team - Carey Rodriguez MD - CONSUMER CREDIT COUNSELOR
--- OUTSIDE RECORDS SUMMARY | 2023-08-06 09:17 | XMS_ITS | Clinical Summary ---
Author Name Unknown Address [address] [place] [address] Phone Organization [facility] , [facility] Address [address] [place] [address] Phone Care Team Providers Care Summer Law Associate Name Role Phone Michael HERNANDEZ, Carey Silva Unavailable [phone] Vern HERNANDEZ, Vega Unavailable [phone] DENISE HERNANDEZ, OCTAVIO Chaudhry Primary Care Provider [phone] Reason for Referral Date Encounter Description Provider Reason for Referral 02/11/23 Follow Up Vega Porras MD Referral To Physician Reason for Visit and Chief Complaint The Chief Complaint is: Left hip pain Problems Includes: Problems addressed during this encounter [...] with the patient. - Last Documented On 02/15/2023 5:22PM ; [facility] We discussed the operation in detail again risk benefits were discussed Willough be able to equalize his leg length and offset with the liner and ball exchange he understands the details of the operation would like to proceed accordingly - Last Documented On 02/15/2023 5:22PM ; [facility], [facility] Future Appointments Date Time Location Provi radha Follow Up 08/24/2023 10:00AM [facility] Porras MD Instructions to patient Instructions for patient see pcp for bp and weight Last Documented On 3 9:24AM ; [facility], [facility] No intervention and counseli ng on cessation of tobacco use Last Documented On 3 9:24AM ; [facility] Lose weight Last Documented On 3 9:24AM ; [facility], [facility] Assessments Includes: Assessments from this encounter Findings Left total hip replacement April 17, 2022 - Last Documented On 02/15/2023 5:22PM ; [facility], [facility] Instructions Includes: Instructions from this encounter Instructions to patient Instructions for patient see pcp for bp and weight Last Documented On 3 9:24AM ; [facility], [facility] No intervention and counseli ng on cessation of tobacco use Last Documented On 3 9:24AM ; [facility], [facility] Lose weight Last Documented On 3 9:24AM ; [facility], [facility] Medical Equipment - Implanted Devices Includes: [...] Oral Tablet 04/16/2022 - 04/21/2022 Provider: Vega Porars MD Diagnosis: 1-2 p o q 6-8h [...] Vital Signs from this encounter Vital Name 02/11/2023 09:40A Height (in) 79 Weight (lb) 255 Body Mass Index 28.7 Body Surface Area 2.5 Note: ba Last Documented On: 02/11/2023 9:41AM ; [facility], [facility] Results Includes: Results discussed during this [...] improvement with conservative treatment with shoe lift Social History Description Last Updated No recent change in diet 06/09/2022 Procedures and Surgical History Includes: Procedures from this encounter Procedures Code Diagnosis Performing Provider Service L ocation Service Date no intervention and counseling on cessation of tobacco use 4000F Surgical History Last Updated History of hernia [...] Date Check-In Time Check- Out Time Diagnosis Follow Up Vega Porras MD [facility] 3 9:13AM 10:08AM Insurance Includes: Active Insurance Policies Plan Name Member ID Group # Subscriber Relationship Effect eliazar Dates 1 - [employer] [place] PLAN [id number] Rick Velasco Self 08/23/2022 - U nknown Clinical Notes Includes: Clinical Notes from this encounter * Progress note Date Encounter Last Documented by 02/11/2023 Follow Up Last documented on 02/15/2023; 5:22 PM, Vega Porras MD; [facility], [facility] Active Problems & Conditions - Ankle [...] Care Team - Carey Rodriguez MD - SUPERVISOR INSTRUMENT MAINTENANCE
--- OUTSIDE RECORDS SUMMARY | 2023-08-06 09:17 | XMS_ITS | Clinical Summary ---
Author Name Unknown Address [address] [place] [address] Phone Organization [facility] , [facility] Address [address] [place] [address] Phone Care Team Providers Care Sales Trader Name Role Phone Michael HERNANDEZ, Carey Silva Unavailable [phone] Vega Porras MD Unavailable [phone] DENISE HERNANDEZ, OCTAVIO Chaudhry Primary Care Provider [phone] Reason for Visit and Chief Complaint [facility] Problems Includes: Problems addressed during this encounter and other active Problems All Visits Onset Date Resolved Date Provider Condition S tatus Ankle Joint Pain 11/12/2020 Vega Porras MD Act eliazar Plan of Treatment Future Appointments Date Time Location Provi radha Follow Up 08/24/2023 10:00AM [facility] Porras MD Assessments Includes: Assessments from this [...] Social History Recorded - Smoking Status Unknown Procedures and Surgical History Includes: Procedures from this encounter Procedures Code Diagnosis Performing Provider Service Location Service Date REVISE HIP JOINT REPLACEMENT (LEFT) [id number] [facility] compl of internal left hip prosthesis, init encntr Vega Porras MD [facility] 02/17/2023 Medical History Includes: Medical History addressed during [...] Location Date Check-In Time Check-Out Time Diagnosis [facility] Vega Porras MD Surgery 02/17/2023 02/16/2023 10:16AM 11:59PM Insurance Includes: Active Insurance Policies Plan Name Member ID Group # Subscriber Relationship Effect eliazar Dates 1 - [employer] GOLD CHOICE PLAN [id number] Rick Velasco Self 08/23/2022 - U nknown Clinical Notes Includes: Clinical Notes from this encounter No Clinical Notes Recorded
--- OUTSIDE RECORDS SUMMARY | 2023-08-06 09:17 | XMS_ITS ---
Care Plan - [facility], [facility] Created on: August 06, 2023 Rick Velasco : 1955 Sex: Male Author Name Unknown Address [address] [place] [address] [place] [address] Phone Organization [facility] Address [address] [place] [address] Phone Care Team Providers Care Handle Finisher Name Role Phone Michael HERNANDEZ, Carey Silva Unavailable [phone] Vern HERNANDEZ, Vega Unavailable [phone] DENISE HERNANDEZ, OCTAVIO I Primary Care Provider [phone]
[2023-08-06] MEDS: LACTATED RINGERS 1000ML 1,000 ML 25 ML IV (09:30)
--- NOTE | 2023-08-06 09:47 | XR_ITS ---
FINAL REPORT CLINICAL HISTORY: Nonspecific cough COMPARISON: None FINDINGS: The heart size is normal. The mediastinum is normal. There is no focal infiltrate or edema. There are no pleural effusions. There is no pneumothorax. There is no osseous abnormality. IMPRESSION: No acute cardiopulmonary process Reviewed, Interpreted and Dictated by Artemio Lentz MD Transcribed by Alma Rodriguez Authenticated and [facility]
--- NOTE | 2023-08-06 09:47 | ECG_ITS ---
APPROVED REPORT Exam: Resting ECG HR:68 bpm ECG Measurements Heart Rate 68 AXES NJ 325 P 40 QRSd 102 QRS 116 QT 422 T 84 QTc 440 Conclusion AV Block with ventricular escape beats. RAD ABNORMAL ECG UNCONFIRMED REPORT Electronically signed by : Aneesh Rutledge MD 08/06/2023 14:43:04
[2023-08-06 10:24] LABS: Basophils % 0.7 % (0.1-2.0); Eosinophils # 0.3 K/mm3 (0.0-0.4); Eosinophils % 4.8 % (0.1-12.0); Hematocrit 46.8 % (42.0-52.0); Hemoglobin 15.2 g/dL (14.1-18.0); Lymphocytes # 1.7 K/mm3 (0.7-4.5); Lymphocytes % 27.4 % (10-50); Mean Corpuscular HGB Conc 32.4 g/dL (31.8-35.4); Mean Corpuscular Hemoglobin 28.6 pg (27.0-31.2); Mean Corpuscular Volume 88.4 fl (80-94); Mean Platelet Volume 8.8 fl (7.4-10.4); Monocytes # 0.3 K/mm3 (0.1-1.0); Monocytes % 5.4 % (1.7-9.3); Neutrophils # 3.7 K/mm3 (1.8-7.8); Neutrophils % 61.6 % (37.0-80.0); Platelet Count 153 K/mm3 (142-424); Red Blood Count 5.29 M/mm3 (4.60-6.20); Red Cell Distribution Width 14.7 % (11.5-17.5)
[2023-08-06 10:35] LABS: Alanine Aminotransferase 44 U/L (12-78); Albumin Level 3.8 g/dl (3.5-5.0); Albumin/Globulin Ratio 1.3 (1.1-1.8); Alkaline Phosphatase 68 U/L (38-126); Aspartate Amino Transferase 43 U/L (17-59); Bilirubin,Total 0.5 mg/dl (0.2-1.3); Blood Urea Nitrogen 17 mg/dl (9-20); Calcium 8.6 mg/dl (8.4-10.2); Carbon Dioxide 28 mmol/L (22.0-30.0); Chloride 106 mmol/L (98-107); Creatinine Clearance Estimated 120 mL/min (50-200); Estimated Glomerular Filt Rate 75 ml/min (>60); GFR (African American) 90 ML/MIN (>60); Globulin 2.9 g/dL (1.3-3.2); Glucose 90 mg/dl (74-100); Sodium 137 mmol/L (136-145); Total Protein,Serum 6.7 g/dl (6.3-8.2)
--- NOTE | 2023-08-06 11:52 | P.PNANES_ITS ---
[facility] Disclaimer: The information contained in this section may have been updated after the patient was seen, as this information can be updated by other users. Medical History Benign prostatic hyperplasia GERD (gastroesophageal reflux disease) Hx of spinal stenosis Hypothyroidism Inguinal hernia Surgical History H/O colonoscopy History of hip replacement History of radiofrequency ablation procedure for cardiac arrhythmia History of repair of hiatal hernia Hx of cholecystectomy Family History Mother Cancer Brother Heart attack Father Stroke Social History Smoking Status: Former smoker alcohol intake: never substance use type: denies use current occupational status: retired Travel in the last 8 weeks: Inside the [facility] Anesthesia Checklist Patient Identification Patient Identification: Arm Band and Verbal (Name & ) Structural Data Admitted From: Home Planned Operative Procedure/s: MPJ fusion Consent for Planned Operative Procedure(s) Verified: Yes NPO Status Verified Time NPO: 00:00 Additional verifications Anesthesia Reactions: No Hx Blood Transfusions: No Airway Assessment Mallampati Score:: Class II C-Spine Mobility Assessed: Yes TMJ Mobility Assessed: Yes Dentition: Good Dentition Neurological Assessment Level of Consciousness: Awake Hx Seizures: No Numbness or tingling in extremities: No Anesthesia Plan Anesthesia Risk discussed: Yes Anesthesia Plan: Verified ASA Class: II Anesthesia Type: General
--- NOTE | 2023-08-06 12:58 | EXP.ANES.I ---
[facility] Anesthesia Record Part I Anesthesia Record I Intake, IV Amount: 1,900 Hydration: Adequate Estimated blood loss (mL): 150 Urine output (mL): 0 Blood Products used (#): none Blood Pressure: 141/93 SaO2: 99 Pulse Rate: 127 Airway Patency: Patent Respiratory Rate: 24 Temperature: 97.2 F Patient is:: Awake (Talking) and Stable Stable to PACU at:: 12:55
[2023-08-06] MEDS: CEFAZOLIN SODIUM 2 GM in 0.9 % SODIUM CHLORIDE 100 ML IV (13:35)
--- NOTE | 2023-08-06 15:30 | SUR.OPER ---
1530- pt family updated of pt current status at this time
[2023-08-06] MEDS: BUPIVACAINE 0.5% 30ML VIAL 150 MG (15:33)
--- NOTE | 2023-08-06 15:58 | EXP.ANES.I ---
[facility] Anesthesia Record Part I Anesthesia Record I Intake, IV Amount: 1,200 Hydration: Adequate Estimated blood loss (mL): 5 Urine output (mL): 0 Blood Pressure: 121/71 SaO2: 96 Pulse Rate: 94 Airway Patency: Patent Respiratory Rate: 18 Temperature: 97 F Patient is:: Drowsy and Oral/Nasal airway Stable to PACU at:: 15:55
--- NOTE | 2023-08-06 16:11 | P.OP_ITS ---
Date of procedure: 08/06/23 Pre-op Diagnosis:: Severe osteoarthritis left first metatarsophalangeal joint/ Hallux rigidus deformity; Hammertoe deformities of left second and fifth toes Post-op Diagnosis:: Severe osteoarthritis left first metatarsophalangeal joint/ Hallux rigidus deformity, Gouty arthritis with tophi; Hammertoe deformities of left second and fifth toes Procedure performed:: Arthrodesis left first metatarsophalangeal joint with [place] fusion plate and screws; Hammertoe correction at second toe PIPJ and DIPJ levels, kwire fixation; fifth toe left proximal phalangeal head arthroplasty hammertoe correction. Surgeon:: Pantera Novak DPM Register In Chancery(s):: none FORMING DEPARTMENT SUPERVISOR:: Marlee Montelongo Anesthesia: GETA and other (popliteal) Estimated blood loss (mL): 5 Operative findings:: As expected, along with gouty tophi within soft tissues of the left first MPJ level. Operative note:: This date and time patient was deemed an appropriate surgical candidate. Preo perative discussion and signed Surgical foot and answered all questions from patient. He acknowledges me, and recites the plan for surgery on his left foot with fusion of great toe joint and hammertoe correction second and fifth toes left foot. Has a knee scooter for Non weightbearing at home. With informed consent signed, the patient was taken to the operating room. The patient was positioned supine. General anesthesia was induced. Tourniquet was applied to the left thigh, never inflated during the procedure. First Metatarsal Phalangeal Joint Arthrodesis: The effected lower extremity was prepped and draped in normal sterile fashion. Attention was directed to the 1st metatarsophalangeal joint (MPJ), where a dorsal linear incision was mapped out extending proximal from the hallux interphalangeal joint, crossing the first Metatarsophalangeal joint to proximal on the met shaft. Dissection was carried thru skin and subcutaneous tissue with care taken to maintain surgical hemostasis and safely retract neurovascular structures. Dissection was then carried through deep fascia linearly over the 1st MPJ, exposing the met head. There was severe arthritic changes noted with wearing down of the cartilage on both the metatarsal head and proximal phalanx, along with evidence from previous surgery on the hallux (small hallux plate still intact and head changes of the first metatarsal). And there was a large joint osteophyte noted which was removed. Gouty tophi noted in the capsular structures left foot. Dorsal as well as lateral spurring noted. Soft tissue surrounding the first MPJ was released. A McGlamry elevator was used to pass underneath the metatarsal head releasing more of the contracture. Utilizing power instrumentation in the form of saw blade, the osteophytes were removed and some of the spurs were resected. Phenestrating drill was used on the cartilaginous base of the proximal phalanx and the cartilaginous metatarsal head were prepared. The remaining portion of the cartilage was removed. The subchondral plate was broken and then utilizing Bone fenestration retail experience specialist the joint was fenestrated down to the level of good healthy cancellous bleeding bone. The wound was flushed with copious amounts of saline. V92 Bone Matrix inserted to facilitate fusion site. At this point, the joint was reduced and temporary fixation inserted. Alignment was visualized and held temporarily. [place] first metatarsophalangeal plate used and fixated 2.7mm screws x 3 were inserted distally into the proximal phalanx. This was followed by a 3.5x28mm intra-fragmentary compression screw followed by 2 x 2.7mm screws into the metatarsal. Good apposition and position was noted. Wound was once again flushed with copious amounts of saline. The remaining portion of the bone graft was packed around the fusion site. 2-0 Vicryl was used to close deep fascia tissues; 3-0 Vicryl was used to close subcutaneous tissues. Then the skin was closed with 3-0 Nylon in a continuous running interlocking fashion. Left second hammertoe correction, rigid contracture at PIPJ and DIPJ: Attention was directed to the left second toe, where a dorsal linear incision was mapped out over the PIPJ extending distally over the DIPJ. Dissection was carried thru skin and sub q tissue, with care to maintain surgical hemostasis. Transverse tenotomy performed at the PIPJ, with release of the medial and lateral collateral ligaments. The head of the proximal and base of the middle phalanx was removed, exposing good cancellous bone. Attention was directed to the DIPJ of the left second toe, where a transverse tenotomy performed at the DIPJ, with release of the medial and lateral collateral ligaments. The head of the middle phalanx was removed. Utilizing standard technique, the left second digit was fixed with a .045 smooth K-wire due to poor bone quality. The was flushed with copious amounts of normal sterile saline. The tendon was repaired with 3-0 Vicryl and 4-0 Nylon was used to close skin in an interrupted mattress and simple suture fashion. Left Fifth Toe PIPJ Arthroplasty: Left fifth hammertoe correction, rigid contracture at PIPJ: Attention was directed to the left fifth toe, where a two converging semi- elliptical incisions were mapped out over the PIPJ. Dissection was carried thru skin and sub q tissue, with care to maintain surgical hemostasis. Transverse tenotomy performed at the PIPJ, with release of the medial and lateral collateral ligaments. The head of the proximal phalanx was resected with sagittal saw. Irrigated with saline. Good alignment noted and deformity resolved. Sutured close with 3-0 vicryl and 3-0 nylon. The incision sites were cleansed with saline. Xeroform, dry sterile dressing was then applied. Dressed with gauze, 4x4 gauze, Kerlix wrap; then well padded posterior splint secured by elastic bandage. The patient was awoken from anesthesia and transferred to recovery with vital signs stable and neurovascular status intact. Specimen: None Discharge/Plan: D/C home today when ready and vital signs stable. Patient is to maintain dressing clean dry and intact. Ice to the top of the foot and elevate on two pillows. Non weight bearing to the [right] lower extremity with DME assistance (crutches, walker, rolling knee scooter). Rx for Percocet 7.5 given. Obtain post op films, [right] foot, 3 views. Follow up in one week. Materials: [place] MTP Plate 10 degree with screws; cannulated screw also for compression Follow up with me in 1 week at office in [facility]; or with podiatry team here at [facility]. Tourniquet time (min): 0 Condition: stable Disposition: PACU Specimens:: Gouty tophi from left first metatarsophalangeal joint Complications:: negative
--- NOTE | 2023-08-09 08:11 | P.PNANES_ITS ---
[facility] Anesthesia Record Part II Anesthesia Record Part II Discharge Time: 16:25 Destination: Surgical Day Care (OP Surgery) PACU nurse assessment reviewed?: Yes Patient Condition:: Good Anesthesia Complications:: None Swallowing reflex intact?: Yes Airway Patency: Patent Cyanosis?: No Blood Pressure: 134/84 SaO2: 98 Respiratory Rate: 17 Pulse Rate: 88 Temperature: 98 F Mental Status: Alert & Oriented Pain level:: 0 Nausea and/or vomitting:: None Intake, IV Amount: 0 Hydration: Adequate
[2023-08-09 08:12] VITALS: BP 134/84; PULSE 88; RESP 17; TEMP 36.6; O2SAT 98
--- NOTE | 2023-09-06 15:38 | PC.NURSE ---
Accessed pt chart to complete ortho paper
== END 2023-08-06 17:00 | disposition home or self-care (01) ==
PROVIDERS: PCP Family Medicine Addiction Medicine; Visit Provider Podiatrist
PROC: (CPT 28285; principal; 2023-08-06 10:30)
DX: M20.42 Other hammer toe(s) (acquired), left foot (principal); M19.072 Primary osteoarthritis, left ankle and foot; M79.672 Pain in left foot; M20.22 Hallux rigidus, left foot; M1A.9XX1 Chronic gout, unspecified, with tophus (tophi)
CPT/HCPCS: 28285 ×2; 28750; 36415; 71045; 80053; 85025; 88305; 88311; 93005; 96374; C1713; C1776; J2405